=== PATIENT | male | born 1970 | race African-American/Black ===

== ENCOUNTER 2016-04-02 18:03 | Emergency (ER) | payer SELFPAY ==
[~2016-04-02] VITALS: Ht 190.5 cm; Wt 102.0 kg
[~2016-04-02 18:03] MED LIST: CEPH500C PO; CIPR750T2 PO; HYDR-3516 PO
[2016-04-02 18:06] VITALS: BP 129/93; PULSE 88; RESP 20; TEMP 98.7; O2SAT 98
[2016-04-02 21:32] VITALS: BP 162/90; PULSE 78; RESP 17; O2SAT 96
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
[2016-04-02] MEDS ORDERED: ACETAMINOPHEN/HYDROcodone 325 MG/5 MG TAB PO ONE (22:15)
[2016-04-02 22:32] LABS: AUTOMATED NEUTROPHIL # 6.8 TH/MM3 (1.8-7.7); BASOPHIL % 0.2 % (0.0-2.0); EOSINOPHIL # 0.1 TH/MM3 (0-0.4); HEMATOCRIT 41.2 % (39.0-51.0); LYMPH % 18.5 % (9.0-44.0); LYMPHOCYTE # 1.7 TH/MM3 (1.0-4.8); MEAN CELL VOLUME 68.4 FL (80.0-100.0); MEAN CORPUSCULAR HEMOGLOBIN 22.5 PG (27.0-34.0); MEAN CORPUSCULAR HGB CONC 32.9 % (32.0-36.0); MONO % 6.4 % (0.0-8.0); NEUT % 73.9 % (16.0-70.0); PLATELET COUNT 286 TH/MM3 (150-450); RED BLOOD COUNT 6.03 MIL/MM3 (4.50-5.90); RED CELL DISTRIBUTION WIDTH 15.2 % (11.6-17.2); WHITE BLOOD COUNT 9.2 TH/MM3 (4.0-11.0)
[2016-04-02 22:42] LABS: HEMO FLAGS AUTO DIFF
[2016-04-02 22:50] LABS: APTT (PATIENT) 30.3 SEC (24.3-30.1); INTERNATIONAL NORMALIZED RATIO 0.9 RATIO; PROTHROMBIN TIME - PATIENT 10.3 SEC (9.8-11.6)
[2016-04-02 23:16] LABS: PLATELET ESTIMATE SMEAR NORMAL (NORMAL); PLATELET MORPHOLOGY NORMAL (NORMAL); SCAN/DIFF AUTO DIFF CONFIRMED
[2016-04-02 23:17] LABS: TOXIC VACUOLATION PRESENT (NONE SEEN)
[2016-04-02 23:18] LABS: ALKALINE PHOSPHATASE 96 U/L (45-117); ALT (GPT) 22 U/L (12-78); ANION GAP 10 MEQ/L (5-15); AST (GOT) 18 U/L (15-37); BICARBONATE 24.4 MEQ/L (21.0-32.0); BLOOD UREA NITROGEN 12 MG/DL (7-18); CHLORIDE 104 MEQ/L (98-107); GLOMERULAR FILTRATION RATE 92 ML/MIN (>89); SODIUM (NA) 138 MEQ/L (136-145); TOTAL BILIRUBIN ADULT 0.3 MG/DL (0.2-1.0)
[2016-04-02 23:24] LABS: POTASSIUM 4.1 MEQ/L (3.5-5.1)
--- NOTE | 2016-04-02 23:30 | PD ---
Physical Exam Date Seen by Provider: Apr 02, 2016 Time Seen by Provider: 22:00 Narrative Patient presents with a skin wound on his left lower extremity. Data Data Last Documented VS Vital Signs Date Time Temp Pulse Resp B/P Pulse Ox O2 Delivery O2 Flow Rate FiO2 04/02/16 21:32 78 17 162/90 96 Room Air 04/02/16 18:06 98.7 Orders Complete Blood Count With Diff (04/02/16 21:36) Comprehensive Metabolic Panel (04/02/16 21:36) Act Partial Throm Time (Ptt) (04/02/16 21:36) Prothrombin Time / Inr (Pt) (04/02/16 21:36) Iv Access Insert/Monitor (04/02/16 21:36) Acetamin-Hydrocod 325-5 Mg ([place] 5-325 (04/02/16 22:15) Us Leg Venous Doppler (04/02/16 ) Labs Laboratory Tests Test 04/02/16 22:10 White Blood Count 9.2 TH/MM3 Red Blood Count 6.03 MIL/MM3 Hemoglobin 13.6 GM/DL Hematocrit 41.2 % Mean Corpuscular Volume 68.4 FL Mean Corpuscular Hemoglobin 22.5 PG Mean Corpuscular Hemoglobin 32.9 % Concent Red Cell Distribution Width 15.2 % Platelet Count 286 TH/MM3 Mean Platelet Volume 7.6 FL Neutrophils (%) (Auto) 73.9 % Lymphocytes (%) (Auto) 18.5 % Monocytes (%) (Auto) 6.4 % Eosinophils (%) (Auto) 1.0 % Basophils (%) (Auto) 0.2 % Neutrophils # (Auto) 6.8 TH/MM3 Lymphocytes # (Auto) 1.7 TH/MM3 Monocytes # (Auto) 0.6 TH/MM3 Eosinophils # (Auto) 0.1 TH/MM3 Basophils # (Auto) 0.0 TH/MM3 CBC Comment AUTO DIFF Differential Comment AUTO DIFF CONFIRMED Toxic Vacuolation PRESENT Platelet Estimate NORMAL Platelet Morphology Comment NORMAL Red Cell Morphology Comment NORMAL Prothrombin Time 10.3 SEC Prothromb Time International 0.9 RATIO Ratio Activated Partial 30.3 SEC Thromboplast Time Sodium Level 138 MEQ/L Potassium Level 4.1 MEQ/L Chloride Level 104 MEQ/L Carbon Dioxide Level 24.4 MEQ/L Anion Gap 10 MEQ/L Blood Urea Nitrogen 12 MG/DL Creatinine 1.06 MG/DL Estimat Glomerular Filtration 92 ML/MIN Rate Random Glucose 106 MG/DL Calcium Level 8.1 MG/DL Total Bilirubin 0.3 MG/DL Aspartate Amino Transf 18 U/L (AST/SGOT) Alanine Aminotransferase 22 U/L (ALT/SGPT) Alkaline Phosphatase 96 U/L Total Protein 7.6 GM/DL Albumin 3.3 GM/DL MDM Supervised Visit with JOAO: Yes Narrative Course I, Dr. Bhardwaj, have reviewed the advance practice practitioner's documentation and am in agreement, met with the patient face to face, made the diagnosis, and the medical decision making was done by me. *My assessment and Findings: Patient has a skin ulcer on the left lower [place]. It has a purulent eschar. His white blood count is 9.2. He has an ultrasound pending to rule out DVT. The patient is already being followed at the wound care clinic. He has not been taking his antibiotics appropriately because of financial reasons. I have changed his antibiotic to Bactrim. It should be free at [facility]. Ultrasound is negative for DVT. Diagnosis Primary Impression: Leg wound, left Qualified Code: S81.802A - Leg wound, left, initial encounter Scripts Sulfamethoxazole-Trimethoprim (Bactrim DS)800-160 Mg Tab1 Tab PO BID #20 TAB Ref 0 Prov:Zahira Bhardwaj MD 04/02/16 Disposition: 01 DISCHARGE HOME Condition: Stable Zahira Bhardwaj MD Apr 02, 2016 23:30
[2016-04-02] MEDS ORDERED: BACT800T5 PO (23:34)
--- NOTE | 2016-04-03 00:18 | RADRPT ---
EXAM DATE/TIME: 04/02/2016 23:38 [place] COMPARISON: No previous studies available for comparison. INDICATIONS : Left lower extremity pain. MEDICAL HISTORY : Hypercholesterolemia. Hypertension. Substance use. SURGICAL HISTORY : Skin grafts. Blood transfusions. ENCOUNTER: Initial ACUITY: 3 months PAIN SCORE: 10/10 LOCATION: Left leg. TECHNIQUE: Venous ultrasound of the leg was performed from the inguinal ligament to the proximal calf. Real-manuel e, color Doppler and spectral tracing, compression and augmentation techniques were used. FINDINGS: There is normal compressibility of the deep venous system from the inguinal region to the proximal ca lf. No echogenic clot is seen in the lumen of the common femoral, femoral, popliteal, and posterior tibial veins. There is a normal response of the venous system to proximal and distal augmentation an d respiration. Shotty lymph nodes in the inguinal region CONCLUSION: No evidence of left lower extremity DVT Alec Cuba MD on April 03, 2016 at 0:16 Board Certified Radiologist. This report was verified electronically.
[2016-04-03] MEDS ORDERED: MOBI15TA PO (00:53)
[2016-04-03 01:24] VITALS: BP 108/51
== END 2016-04-03 01:54 | disposition home or self-care (01) ==
LOC: NEPC 18:03
DX: L97.329 Non-pressure chronic ulcer of left ankle with unspecified severity (principal); E78.00 Pure hypercholesterolemia, unspecified; I10 Essential (primary) hypertension; F17.210 Nicotine dependence, cigarettes, uncomplicated; F10.20 Alcohol dependence, uncomplicated; F14.20 Cocaine dependence, uncomplicated; Y90.9 Presence of alcohol in blood, level not specified
CPT/HCPCS: 80053; 85025; 85610; 85730; 93971; 99283

== ENCOUNTER 2016-08-11 13:54 | Emergency (ER) | payer OTHER ==
[~2016-08-11] VITALS: Ht 182.9 cm; Wt 102.0 kg
[~2016-08-11 13:54] MED LIST changes: +BACT800T5 PO; +MOBI15TA PO
[2016-08-11 14:06] VITALS: BP 144/90; PULSE 59; RESP 20; TEMP 97.9; O2SAT 97
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
[2016-08-11] MEDS ORDERED: ROBA500T PO (14:50)
[2016-08-11] MEDS ORDERED: IBUP800T23 PO (14:50)
[2016-08-11] MEDS ORDERED: METHOCARBAMOL 500 MG TAB PO ONE (15:00)
[2016-08-11] MEDS ORDERED: IBUPROFEN 800 MG TAB PO ONE (15:00)
== END 2016-08-11 15:30 | disposition home or self-care (01) ==
LOC: NEPK 13:54
DX: S39.012A Strain of muscle, fascia and tendon of lower back, initial encounter (principal); S29.012A Strain of muscle and tendon of back wall of thorax, initial encounter; V79.9XXA Bus occupant (driver) (passenger) injured in unspecified traffic accident, initial encounter
CPT/HCPCS: 99283

== ENCOUNTER 2016-08-26 15:09 | Emergency (ER) | payer SELFPAY ==
[~2016-08-26] VITALS: Ht 198.1 cm; Wt 102.2 kg
[~2016-08-26 15:09] MED LIST changes: +IBUP800T23 PO; +ROBA500T PO
[2016-08-26 15:11] VITALS: BP 122/63; PULSE 65; RESP 14; TEMP 98; O2SAT 98
[2016-08-26 17:00] LABS: BLOOD, URINE SMALL (NEG); GLUCOSE,URINE NEG (NEG); KETONE, URINE NEG (NEG); NITRITE,URINE NEG (NEG); PH, URINE 5.5 (5.0-8.5); URINE COLOR YELLOW (YELLW/STRAW)
[2016-08-26 17:01] LABS: COMMENT (UR) CULT NOT INDICATED; CULTURE IF INDICATED CULT NOT INDICATED
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
[2016-08-26 18:48] LABS: AUTOMATED NEUTROPHIL # 4.5 TH/MM3 (1.8-7.7); BASOPHIL # 0.1 TH/MM3 (0-0.2); BASOPHIL % 0.9 % (0.0-2.0); EOSINOPHIL # 0.2 TH/MM3 (0-0.4); EOSINOPHIL % 2.3 % (0.0-4.0); HEMATOCRIT 42.8 % (39.0-51.0); HEMO FLAGS DIFF FINAL; LYMPH % 31.6 % (9.0-44.0); LYMPHOCYTE # 2.4 TH/MM3 (1.0-4.8); MEAN CELL VOLUME 71.5 FL (80.0-100.0); MEAN CORPUSCULAR HEMOGLOBIN 22.1 PG (27.0-34.0); MEAN CORPUSCULAR HGB CONC 30.9 % (32.0-36.0); MONO % 6.4 % (0.0-8.0); NEUT % 58.8 % (16.0-70.0); PLATELET COUNT 305 TH/MM3 (150-450); RED BLOOD COUNT 5.99 MIL/MM3 (4.50-5.90); RED CELL DISTRIBUTION WIDTH 15.6 % (11.6-17.2); WHITE BLOOD COUNT 7.6 TH/MM3 (4.0-11.0)
[2016-08-26 19:06] LABS: ALT (GPT) 32 U/L (12-78)
[2016-08-26 19:07] LABS: ALKALINE PHOSPHATASE 97 U/L (45-117); TOTAL BILIRUBIN ADULT 0.2 MG/DL (0.2-1.0)
[2016-08-26 19:12] LABS: ANION GAP 6 MEQ/L (5-15); AST (GOT) 37 U/L (15-37); BICARBONATE 25.2 MEQ/L (21.0-32.0); BLOOD UREA NITROGEN 12 MG/DL (7-18); CHLORIDE 105 MEQ/L (98-107); GLOMERULAR FILTRATION RATE 101 ML/MIN (>89); SODIUM (NA) 136 MEQ/L (136-145)
[2016-08-26 19:14] LABS: POTASSIUM 5.9 MEQ/L (3.5-5.1)
[2016-08-26] MEDS ORDERED: IOHEXOL 350 MG/ML 10 ML VIAL (for RAD DIAG) IV ONE (19:21)
--- NOTE | 2016-08-26 19:39 | RADRPT ---
EXAM DATE/TIME: 08/26/2016 19:09 [facility] COMPARISON: No previous studies available for comparison. INDICATIONS : Right side abdominal pain, nausea and vomiting. IV CONTRAST: 90 cc Omnipaque 350 (iohexol) IV ORAL CONTRAST: No oral contrast ingested. RADIATION DOSE: 16.10 CTDIvol (mGy) MEDICAL HISTORY : Cardiovascular disease. SURGICAL HISTORY : None. ENCOUNTER: Initial ACUITY: 1 day PAIN SCALE: 9/10 LOCATION: Right Abdomen. TECHNIQUE: Volumetric scanning of the abdomen and pelvis was performed. Using automated exposure control and ad justment of the mA and/or kV according to patient size, radiation dose was kept as low as reasonably achievable to obtain optimal diagnostic quality images. FINDINGS: LOWER LUNGS: The visualized lower lungs are clear. LIVER: Homogeneous density without lesion. There is no dilation of the biliary tree. No calcified gallston es. SPLEEN: Normal size without lesion. PANCREAS: Within normal limits. KIDNEYS: Normal in size and shape. There is no mass, stone or hydronephrosis. ADRENAL GLANDS: Within normal limits. VASCULAR: There is no aortic aneurysm. BOWEL/MESENTERY: The stomach, small bowel, and colon demonstrate no acute abnormality. There is no free intraperitone al air or fluid. Normal appendix. ABDOMINAL WALL: Within normal limits. RETROPERITONEUM: There is no lymphadenopathy. BLADDER: Circumferential mild wall thickening seen in the urinary bladder. The bladder margins appear mildly i ndistinct. No well-defined mass. REPRODUCTIVE: Within normal limits. INGUINAL: There is no lymphadenopathy or hernia. MUSCULOSKELETAL: No acute bony abnormality demonstrated. CONCLUSION: Suspected acute cystitis and please correlate clinically. Otherwise negative CT of the abdomen and pe lvis. Alec Hagen MD on August 26, 2016 at 19:35 Board Certified Radiologist. This report was verified electronically.
[2016-08-26] MEDS ORDERED: LEVA500T20 PO ×2 (19:48→20:24)
[2016-08-26] MEDS ORDERED: NAPR500T PO ×2 (19:53→20:24)
[2016-08-26] MEDS ORDERED: NAPROXEN 500 MG TAB PO ONE (20:00)
[2016-08-26 20:32] VITALS: BP 135/76
[2016-08-26 21:15] LABS: CHLAMYDIA PCR NOT DETECTED (NOT DETECT); NEISSERIA PCR NOT DETECTED (NOT DETECT)
== END 2016-08-26 20:30 | disposition home or self-care (01) ==
LOC: NEPD 15:09
DX: N30.90 Cystitis, unspecified without hematuria (principal); S81.802A Unspecified open wound, left lower leg, initial encounter; R10.31 Right lower quadrant pain; R30.0 Dysuria; I10 Essential (primary) hypertension; F17.210 Nicotine dependence, cigarettes, uncomplicated; W50.1XXA Accidental kick by another person, initial encounter; Y93.I9 Activity, other involving external motion; Y92.811 Bus as the place of occurrence of the external cause
CPT/HCPCS: 74177; 80053; 81001; 83690; 84132; 85025; 87086; 87491; 87591; 99285; Q9967

== ENCOUNTER 2016-09-23 14:20 | Emergency (ER) | payer SELFPAY ==
[~2016-09-23 14:20] MED LIST changes: +LEVA500T20 PO; +NAPR500T PO
[2016-09-23 14:22] VITALS: BP 128/84; PULSE 83; RESP 20; TEMP 98.3; O2SAT 98
--- NOTE | 2016-09-23 14:40 | PD ---
Physical Exam Time Seen by Provider: 14:38 Narrative 45 y/o male with chronic wound L leg presents with increasing pain, swelling, drainage from the wound for one week. Vital signs reviewed. Seen at triage desk. Awaiting bed placement. Data Data Last Documented VS Vital Signs Date Time Temp Pulse Resp B/P Pulse Ox O2 Delivery O2 Flow Rate FiO2 09/23/16 14:22 98.3 83 20 128/84 98 MDM Medical Record Reviewed: Yes Supervised Visit with JOAO: Jens Tovar Sep 23, 2016 14:40
[2016-09-23] MEDS ORDERED: CLINDAMYCIN INJ 600 MG in SODIUM CHLORIDE 0.9% INJ 100 ML IV ONE (15:30)
[2016-09-23] MEDS ORDERED: SODIUM CHLOR 0.9% 1000 ML INJ 1,000 ML IV ONE (15:30)
[2016-09-23] MEDS ORDERED: MORPHINE SULFATE 4 MG/ML INJ IV PUSH ONE (15:30)
[2016-09-23] MEDS ORDERED: KETOROLAC TROMETHAMINE 30 MG/ML (IVP) VIAL IVP ONE (15:30)
--- NOTE | 2016-09-23 15:32 | PD ---
HPI Chief Complaint: Musculoskeletal Complaint Time Seen by Provider: 15:20 Travel History International Travel<30 days: No Contact w/Intl Traveler<30days: No Traveled to known affect area: No History of Present Illness HPI The patient is a 45-year-old [place] male who presents emergency department for left leg pain. The patient has a history of chronic with the left lower extremity, is been evaluate multiple times and prescribed antibiotics. However, patient states she repetitively loses his prescriptions and has not followed up with his primary physician in over 1 month. He now notes increasing pain, has an open area in the anterior aspect left lower extremity which is had a small amount of drainage, mostly clear to yellow. He denies any fever, chills, or sweats. He does note scar to lower extremities and significant swelling of the mid left tibia/fibula which is been present for several years. He denies any fever, chills, or sweats. PFSH Past Medical History Hx Anticoagulant Therapy: No Blood Disorders: No Heart Rhythm Problems: No Cancer: No Cardiovascular Problems: Yes High Cholesterol: Yes Chest Pain: No Congestive Heart Failure: No Diabetes: No Diminished Hearing: No Endocrine: No Genitourinary: Yes (hesitancy) Hypertension: Yes Musculoskeletal: No Neurologic: No Psychiatric: No Reproductive: No Respiratory: No Thyroid Disease: No Past Surgical History Other Surgery: Yes (skin grafts ) Social History Alcohol Use: Yes (3-4 times per week, 1-2 beers per night) Tobacco Use: Yes (1/4 pack per day) Substance Use: Yes (crack coccaine daily) Allergies-Medications (Allergen,Severity, Reaction): Coded Allergies: Ciprofloxacin (Verified Allergy, Unknown, Confusion, 08/26/16) per mother, causes confusion/disorientation/hallucinations Reported Meds & Prescriptions Reported Meds & Active Scripts Active Ibuprofen 600 Mg Tab 600 Mg PO Q6H PRN Keflex (Cephalexin) 500 Mg Cap 500 Mg PO Q6H 7 Days Bactrim DS (Sulfamethoxazole-Trimethoprim) 800-160 Mg Tab 1 Tab PO BID Review of Systems Except as stated in HPI: all other systems reviewed are Neg General / Constitutional: No: Fever, Chills Musculoskeletal: Positive: Edema, Pain Skin: Positive Other (as noted in the history of present illness) Neurologic: No: Paresthesia, Sensory Disturbance Physical Exam Narrative GENERAL: Awake, alert, nontoxic-appearing 45-year-old male who appears his stated age and is in no acute respiratory distress. SKIN: Focused skin assessment warm/dry. HEAD: Atraumatic. Normocephalic. EYES: No injection or drainage. ENT: No nasal bleeding or discharge. Mucous membranes pink and moist. NECK: Trachea midline. No JVD. CARDIOVASCULAR: Regular rate and rhythm. No murmur appreciated. RESPIRATORY: No accessory muscle use. Clear to auscultation. Breath sounds equal bilaterally. GASTROINTESTINAL: Abdomen soft, non-tender, nondistended. No rebound tenderness. MUSCULOSKELETAL: Lower extremities have visible scars bilateral. The anterior aspect the left tibia/fibula has an area of swelling of the left mid aspect which is nontender. He does have an open area at the inferior aspect which is approximately 3 cm x 1.5 cm, mild clear drainage, but no underlying fluctuance. Positive distal pulses. NEUROLOGICAL: Awake and alert. No obvious cranial nerve deficits. Motor grossly within normal limits. Normal speech. PSYCHIATRIC: Appropriate mood and affect; insight and judgment normal. Data Data Last Documented VS Vital Signs Date Time Temp Pulse Resp B/P Pulse Ox O2 Delivery O2 Flow Rate FiO2 09/23/16 14:22 98.3 83 20 128/84 98 Orders Basic Metabolic Panel (Bmp) (09/23/16 15:27) Complete Blood Count With Diff (09/23/16 15:27) Wound Culture And Gram Stain (09/23/16 15:27) Iv Access Insert/Monitor (09/23/16 15:27) Ketorolac Inj (Toradol Inj) (09/23/16 15:30) Clindamycin Inj (Cleocin Inj) (09/23/16 15:30) Sodium Chlor 0.9% 1000 Ml Inj (Ns 1000 M (09/23/16 15:30) Morphine Inj (Morphine Inj) (09/23/16 15:30) Morphine Inj (Morphine Inj) (09/23/16 16:30) Labs Laboratory Tests Test 09/23/16 15:59 White Blood Count 11.2 TH/MM3 Red Blood Count 6.11 MIL/MM3 Hemoglobin 13.5 GM/DL Hematocrit 42.6 % Mean Corpuscular Volume 69.7 FL Mean Corpuscular Hemoglobin 22.1 PG Mean Corpuscular Hemoglobin 31.7 % Concent Red Cell Distribution Width 15.1 % Platelet Count 300 TH/MM3 Mean Platelet Volume 7.2 FL Neutrophils (%) (Auto) 65.5 % Lymphocytes (%) (Auto) 26.5 % Monocytes (%) (Auto) 5.6 % Eosinophils (%) (Auto) 1.6 % Basophils (%) (Auto) 0.8 % Neutrophils # (Auto) 7.3 TH/MM3 Lymphocytes # (Auto) 3.0 TH/MM3 Monocytes # (Auto) 0.6 TH/MM3 Eosinophils # (Auto) 0.2 TH/MM3 Basophils # (Auto) 0.1 TH/MM3 CBC Comment DIFF FINAL Differential Comment Sodium Level 137 MEQ/L Potassium Level 5.4 MEQ/L Chloride Level 105 MEQ/L Carbon Dioxide Level 25.1 MEQ/L Anion Gap 7 MEQ/L Blood Urea Nitrogen 19 MG/DL Creatinine 1.13 MG/DL Estimat Glomerular Filtration 85 ML/MIN Rate Random Glucose 89 MG/DL Calcium Level 8.4 MG/DL [facility] Medical Decision Making Medical Screen Exam Complete: Yes Emergency Medical Condition: Yes Medical Record Reviewed: Yes Interpretation(s) Laboratory Tests Test 09/23/16 15:59 White Blood Count 11.2 TH/MM3 Red Blood Count 6.11 MIL/MM3 Hemoglobin 13.5 GM/DL Hematocrit 42.6 % Mean Corpuscular Volume 69.7 FL Mean Corpuscular Hemoglobin 22.1 PG Mean Corpuscular Hemoglobin 31.7 % Concent Red Cell Distribution Width 15.1 % Platelet Count 300 TH/MM3 Mean Platelet Volume 7.2 FL Neutrophils (%) (Auto) 65.5 % Lymphocytes (%) (Auto) 26.5 % Monocytes (%) (Auto) 5.6 % Eosinophils (%) (Auto) 1.6 % Basophils (%) (Auto) 0.8 % Neutrophils # (Auto) 7.3 TH/MM3 Lymphocytes # (Auto) 3.0 TH/MM3 Monocytes # (Auto) 0.6 TH/MM3 Eosinophils # (Auto) 0.2 TH/MM3 Basophils # (Auto) 0.1 TH/MM3 CBC Comment DIFF FINAL Differential Comment Sodium Level 137 MEQ/L Potassium Level 5.4 MEQ/L Chloride Level 105 MEQ/L Carbon Dioxide Level 25.1 MEQ/L Anion Gap 7 MEQ/L Blood Urea Nitrogen 19 MG/DL Creatinine 1.13 MG/DL Estimat Glomerular Filtration 85 ML/MIN Rate Random Glucose 89 MG/DL Calcium Level 8.4 MG/DL Differential Diagnosis Differential diagnosis includes chronic left leg wound, cellulitis, abscess, osteomyelitis, noncompliance. Narrative Course IV was established, labs are drawn and sent, and the patient was placed on cardiac telemetry monitoring and continuous pulse oximetry monitoring. Culture was obtained from the anterior aspect the left tibia/fibular. The patient was administered morphine, Zofran, clindamycin, and IV fluids. Nursing staff was unable to obtain IV access, therefore, I placed a 20-gauge ultrasound-guided IV in the right upper extremity under ultrasound guidance. There is good blood return and the IV flowed easily. White count was minimally elevated 11.2, potassium was 5.4, however, there was hemolysis, patient is afebrile, this is chronic leg pain with acute on chronic infections. The patient was placed on Bactrim and Keflex, is advised to follow-up with a primary physician. Procedures Procedure Narrative I placed a 20-gauge, 1.88 inch, ultrasound-guided IV with a linear probe under ultrasound guidance in the right forearm. The IV had good blood return and flowed easily. The patient tolerated the procedure without difficulty and there was no obvious complications. Diagnosis Primary Impression: Leg wound, left Qualified Code: S81.802A - Leg wound, left, initial encounter Additional Impression: Chronic pain of left lower extremity Patient Instructions: General Instructions Additional Instructions: Medications as directed. Follow-up with a primary physician. Med/Other Pt SpecificInfo: Prescription(s) given Scripts Ibuprofen 600 Mg [id number] Mg PO Q6H PRN (Pain/Inflammation) #20 TAB Ref 0 Prov:Danny Toribio MD 09/23/16 Cephalexin (Keflex)500 Mg [id number] Mg PO Q6H 7 Days Ref 0 Prov:Danny Toribio MD 09/23/16 Sulfamethoxazole-Trimethoprim (Bactrim DS)800-160 Mg Tab1 Tab PO BID #14 TAB Ref 0 Prov:Danny Toribio MD 09/23/16 Disposition: 01 DISCHARGE HOME Condition: Stable Danny Toribio MD Sep 23, 2016 15:32
[2016-09-23 16:00] VITALS: BP 120/62; PULSE 82; RESP 20; O2SAT 99
[2016-09-23 16:15] LABS: AUTOMATED NEUTROPHIL # 7.3 TH/MM3 (1.8-7.7); BASOPHIL # 0.1 TH/MM3 (0-0.2); BASOPHIL % 0.8 % (0.0-2.0); EOSINOPHIL # 0.2 TH/MM3 (0-0.4); EOSINOPHIL % 1.6 % (0.0-4.0); HEMATOCRIT 42.6 % (39.0-51.0); HEMO FLAGS DIFF FINAL; LYMPH % 26.5 % (9.0-44.0); MEAN CELL VOLUME 69.7 FL (80.0-100.0); MEAN CORPUSCULAR HEMOGLOBIN 22.1 PG (27.0-34.0); MEAN CORPUSCULAR HGB CONC 31.7 % (32.0-36.0); MONO % 5.6 % (0.0-8.0); NEUT % 65.5 % (16.0-70.0); PLATELET COUNT 300 TH/MM3 (150-450); RED BLOOD COUNT 6.11 MIL/MM3 (4.50-5.90); RED CELL DISTRIBUTION WIDTH 15.1 % (11.6-17.2); WHITE BLOOD COUNT 11.2 TH/MM3 (4.0-11.0)
[2016-09-23] MEDS ORDERED: MORPHINE SULFATE 8 MG/ML INJ IV PUSH ONE (16:30)
[2016-09-23 16:50] LABS: BICARBONATE 25.1 MEQ/L (21.0-32.0)
[2016-09-23 16:51] LABS: POTASSIUM 5.4 MEQ/L (3.5-5.1)
[2016-09-23] MEDS ORDERED: BACT800T5 PO (16:51)
[2016-09-23] MEDS ORDERED: IBUP-232 PO (16:51)
[2016-09-23] MEDS ORDERED: CEPH-460 PO (16:51)
[2016-09-23 18:00] VITALS: BP 130/56; PULSE 82; RESP 18; O2SAT 98
== END 2016-09-23 18:10 | disposition home or self-care (01) ==
LOC: NEPD 14:20
DX: S81.802A Unspecified open wound, left lower leg, initial encounter (principal); B95.61 Methicillin susceptible Staphylococcus aureus infection as the cause of diseases classified elsewhere; B96.4 Proteus (mirabilis) (morganii) as the cause of diseases classified elsewhere; B96.89 Other specified bacterial agents as the cause of diseases classified elsewhere; G89.29 Other chronic pain; M79.605 Pain in left leg; X58.XXXA Exposure to other specified factors, initial encounter
CPT/HCPCS: 80048; 85025; 86403; 87070; 87077; 87186; 96365; 96375; 99284; J1885; J2270; J7030

== ENCOUNTER 2017-02-12 10:41 | Emergency (ER) | payer SELFPAY ==
[~2017-02-12] VITALS: Ht 182.9 cm; Wt 100.0 kg
[~2017-02-12 10:41] MED LIST changes: +CEPH-460 PO; -CEPH500C PO; -CIPR750T2 PO; -HYDR-3516 PO; +IBUP-232 PO; -IBUP800T23 PO; -LEVA500T20 PO; -MOBI15TA PO; -NAPR500T PO; -ROBA500T PO
[2017-02-12 10:50] VITALS: BP 160/90; PULSE 69; RESP 15; TEMP 97.7; O2SAT 98
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
[2017-02-12 11:26] VITALS: O2SAT 98
[2017-02-12 11:39] LABS: BLOOD, URINE SMALL (NEG); GLUCOSE,URINE NEG (NEG); KETONE, URINE NEG (NEG); NITRITE,URINE NEG (NEG); PH, URINE 6.5 (5.0-8.5); URINE COLOR YELLOW (YELLW/STRAW)
[2017-02-12 11:40] LABS: COMMENT (UR) CATH-CULT NOT IND; CULTURE IF INDICATED CATH CULTURE NOT IND
[2017-02-12 11:41] LABS: AUTOMATED NEUTROPHIL # 5.9 TH/MM3 (1.8-7.7); BASOPHIL % 0.5 % (0.0-2.0); EOSINOPHIL # 0.2 TH/MM3 (0-0.4); HEMATOCRIT 40.8 % (39.0-51.0); HEMO FLAGS DIFF FINAL; LYMPH % 23.5 % (9.0-44.0); MEAN CELL VOLUME 70.3 FL (80.0-100.0); MEAN CORPUSCULAR HEMOGLOBIN 22.5 PG (27.0-34.0); MONO % 5.7 % (0.0-8.0); NEUT % 68.3 % (16.0-70.0); PLATELET COUNT 350 TH/MM3 (150-450); RED BLOOD COUNT 5.81 MIL/MM3 (4.50-5.90); RED CELL DISTRIBUTION WIDTH 14.5 % (11.6-17.2); WHITE BLOOD COUNT 8.6 TH/MM3 (4.0-11.0)
[2017-02-12 11:54] LABS: ANION GAP 8 MEQ/L (5-15); AST (GOT) 26 U/L (15-37); BICARBONATE 24.9 MEQ/L (21.0-32.0); BLOOD UREA NITROGEN 16 MG/DL (7-18); CHLORIDE 103 MEQ/L (98-107); GLOMERULAR FILTRATION RATE 109 ML/MIN (>89); MAGNESIUM 1.8 MG/DL (1.5-2.5); POTASSIUM 4.2 MEQ/L (3.5-5.1); SODIUM (NA) 136 MEQ/L (136-145)
[2017-02-12 11:55] LABS: APTT (PATIENT) 30.3 SEC (24.3-30.1); PROTHROMBIN TIME - PATIENT 9.7 SEC (9.8-11.6)
[2017-02-12 11:56] LABS: ALT (GPT) 26 U/L (12-78)
[2017-02-12 11:58] LABS: ALKALINE PHOSPHATASE 98 U/L (45-117); CREATINE KINASE 230 U/L (39-308); TOTAL BILIRUBIN ADULT 0.3 MG/DL (0.2-1.0)
[2017-02-12 12:10] LABS: CKMB 2.7 NG/ML (0.5-3.6)
[2017-02-12] MEDS ORDERED: KETOROLAC TROMETHAMINE 30 MG/ML (IVP) VIAL IV PUSH ONE (15:45)
[2017-02-12] MEDS ORDERED: GADODIAMIDE PF 287 MG/ML 20 ML VIAL (for RAD MRI) IVCONTRAST ONE (16:24)
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
--- NOTE | 2017-02-13 16:30 | EKG ---
Date Performed: 02/12/2017 Time Performed: 11:33:25 PTAGE: 46 years EKG: SINUS BRADYCARDIA MINIMAL VOLTAGE CRITERIA FOR LVH, CONSIDER NORMAL VARIANT Since previous tracing, no significant change noted BORDERLINE ECG PREVIOUS TRACING : 09/09/1993 03.41 DOCTOR: Yanely Graham Interpretating Date/Time 02/13/2017 16:30:03
== END 2017-02-12 17:30 | disposition home or self-care (01) ==
LOC: NEPC 10:41
DX: S81.802A Unspecified open wound, left lower leg, initial encounter (principal); F17.210 Nicotine dependence, cigarettes, uncomplicated; F14.10 Cocaine abuse, uncomplicated; I10 Essential (primary) hypertension; R00.1 Bradycardia, unspecified; R53.1 Weakness; R06.2 Wheezing; X58.XXXA Exposure to other specified factors, initial encounter
CPT/HCPCS: 73720; 80053; 81001; 82550; 82552; 83605; 83690; 83735; 84100; 84484; 85025; 85610; 85652; 85730; 86140; 87040; 93005; 96374; 99285; A9579; J1885

== ENCOUNTER 2017-12-14 10:18 | Observation (INO) ==
[2017-12-14] MEDS ORDERED: Famotidine PF Inj 20 MG/2 ML Vial IV.PUSH ONE (13:05)
[2017-12-14] MEDS ORDERED: Ketorolac Inj 30 MG/ML (IVP) Vial IV.PUSH ONE (13:05)
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
[2017-12-14 14:13] LABS: Baso % (Auto) 0.4 % (0.0-2.0); Eos # (Auto) 0.1 th/mm3 (0.0-0.4); Eos % (Auto) 0.7 % (0.0-4.0); Hemoglobin 12.8 gm/dL (13.0-17.0); Lymph # (Auto) 2.5 th/mm3 (1.0-4.8); Lymph % (Auto) 33.1 % (9.0-44.0); Mean Corpuscular HGB Conc 31.2 % (32.0-36.0); Mean Corpuscular Hemoglobin 22.5 pg (27.0-34.0); Mean Platelet Volume 7.7 fL (7.0-11.0); Mono # (Auto) 0.6 th/mm3 (0.0-0.9); Mono % (Auto) 8.1 % (0.0-8.0); Neut # (Auto) 4.4 th/mm3 (1.8-7.7); Neut % (Auto) 57.7 % (16.0-70.0); Platelet Count 295 th/mm3 (150-450); Red Blood Count 5.69 mil/mm3 (4.50-5.90); Red Cell Distribution Width 16.3 % (11.6-17.2); White Blood Count 7.6 th/mm3 (4.0-11.0)
[2017-12-14 14:19] LABS: Activated Partial Thrombo Time 27.5 sec (24.3-30.1); Prothrombin Time 9.7 sec (9.8-11.6)
[2017-12-14 14:36] LABS: Alkaline Phosphatase 84 U/L (45-117); Creatine Kinase 138 U/L (39-308)
[2017-12-14 14:42] LABS: Alanine Aminotransferase 27 U/L (12-78); Albumin 3.3 g/dL (3.4-5.0); Anion Gap 7 meq/L (5-15); Aspartate Aminotransferase 20 U/L (15-37); Blood Urea Nitrogen 15 mg/dL (7-18); Calcium 8.2 mg/dL (8.5-10.1); Carbon Dioxide 27.7 meq/L (21.0-32.0); Chloride 110 meq/L (98-107); Glomerular Filtration Rate 80 mL/min (>89); Glucose,Random 66 mg/dL (74-106); Lipase 103 U/L (73-393); Potassium 4.1 meq/L (3.5-5.1); Sodium 145 meq/L (136-145)
[2017-12-14 14:49] LABS: Creatine Kinase MB 1.7 ng/mL (0.5-3.6)
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
[2017-12-14 15:57] LABS: Bilirubin,Urine Negative (Negative); Clarity,Urine Clear (Clear); Color,Urine Yellow (Yellw/Straw); Glucose,Urine (UA) Negative (Negative); Leukocyte Esterase,Urine Negative (Negative); Mucus,Urine Few /lpf (Occasional); Nitrite,Urine Negative (Negative); Specific Gravity,Urine 1.021 (1.002-1.035); Squamous Epithelial Cell,Urine <1 /hpf (0-5)
[2017-12-14 18:01] LABS: Creatine Kinase 127 U/L (39-308)
[2017-12-14 20:38] LABS: Creatine Kinase 121 U/L (39-308)
[2017-12-14] MEDS: Morphine Inj 4 MG/ML Vial IV.PUSH PRN (20:46)
[2017-12-15 00:18] VITALS: RESP 18
[2017-12-15] MEDS: Morphine Inj 4 MG/ML Vial IV.PUSH PRN (07:05)
[2017-12-15 07:29] VITALS: BP 131/90; TEMP 97.6; O2SAT 98
--- NOTE | 2017-12-15 09:03 | ECG ---
Date Performed: 12/14/2017 Time Performed: 17:02:33 PTAGE: 47 years EKG: SINUS BRADYCARDIA WITH SINUS ARRHYTHMIA WITH FIRST DEGREE AV BLOCK POSSIBLE LEFT ATRIAL ENL ARGEMENT POSSIBLE ANTERIOR MYOCARDIAL INFARCTION ABNORMAL ECG Since PREVIOUS TRACING , no significant change noted PREVIOUS TRACIN12/14/2017 14.38 DOCTOR: Yanely Graham Interpretating Date/Time 12/15/2017 09:01:58
--- NOTE | 2017-12-15 09:03 | ECG ---
Date Performed: 12/14/2017 Time Performed: 14:38:55 PTAGE: 47 years EKG: SINUS BRADYCARDIA WITH FIRST DEGREE AV BLOCK ABNORMAL ECG Since PREVIOUS TRACING , no significant change noted DOCTOR: Yanely Graham Interpretating Date/Time 12/15/2017 09:01:04
[2017-12-15 09:52] VITALS: PULSE 53
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
--- NOTE | 2017-12-15 16:29 | TR ---
Date Performed: 12/15/2017 Time Performed: 10:09:25 DOCTOR: Yanely Graham DRUG LIST: CLINICAL HISTORY: CHEST PAIN REASON FOR TEST: REASON FOR ENDING: OBSERVATION: CONCLUSION: MAXIM PROTOCOL. NO CP. TEST STOPPED AFTER REACHING GOAL HR SECONDARY TO SOB AND LEG FATIGUE.Maximum IT=685 % Max HR Achieved=87.0% Maximum YE=591/[birth year] Total Exercise Time=10:01 COMMENTS: No ischemia
== END 2017-12-15 11:14 | disposition home or self-care (01) ==
LOC: NEDA 10:18 → NEPD 10:18 → NEDA 17:28 → NEPFCDU 17:29
PROVIDERS: ADMIT Internal Medicine Cardiovascular Disease; ATTEND Internal Medicine Cardiovascular Disease
DX: R07.9 Chest pain, unspecified; F31.30 Bipolar disorder, current episode depressed, mild or moderate severity, unspecified; R94.31 Abnormal electrocardiogram [ECG] [EKG]; F19.10 Other psychoactive substance abuse, uncomplicated; F14.90 Cocaine use, unspecified, uncomplicated; F17.210 Nicotine dependence, cigarettes, uncomplicated